=== PATIENT | male | born 1970 | race Caucasian/White ===

== ENCOUNTER 2021-08-02 08:02 | Outpatient (REF) | payer BC, SELFPAY ==
--- NOTE | ~2021-08-02 | US_ITS ---
EXAMINATION: US ABDOMEN COMPLETE CLINICAL INFORMATION: Gallstone. Liver disease. COMPARISON: Ultrasound abdomen 01/07/2019. TECHNIQUE: Real-time imaging of the abdominal viscera. FINDINGS: PANCREAS: The pancreas is homogeneous echotexture and normal in size. The pancreatic duct measures 0.12 cm. ABDOMINAL AORTA: The proximal, mid, and distal segments are normal in caliber. INFERIOR VENA CAVA: Visualized portions are normal. LIVER: The liver is normal in size. The liver contour is normal. Parenchymal echogenicity is slightly heterogeneous. There is an anechoic cyst in the left hepatic lobe measuring 2.2 x 1.0 x 1.0 cm in supine view and slightly larger in the decubitus view measuring 2.9 x 0.5 x 2.4 cm. There is no intrahepatic biliary duct dilatation seen. GALLBLADDER: There is echogenic debris seen in the decubitus view. The gallbladder is physiologically distended without evidence of stones, sludge, polyps, wall thickening or pericholecystic fluid. COMMON BILE DUCT: Normal in caliber measuring 0.3 cm in diameter. RIGHT KIDNEY: Normal. No hydronephrosis. No renal calculi or focal parenchymal lesions. The kidney measures 10.8 cm in maximum dimension. LEFT KIDNEY: Normal. No hydronephrosis. No renal calculi or focal parenchymal lesions. The kidney measures 11.2 cm in maximum dimension. SPLEEN: Normal. The spleen measures 10.2 cm in maximum dimension. FREE FLUID: None. US/US abdomen complete IMPRESSION: Slightly heterogeneous liver with a left hepatic lobe cyst. Previously, this measured 1.9 x 1.1 x 1.8 cm Slightly echogenic debris seen in the gallbladder but no echogenic gallstones or wall thickening. The rest of the abdominal ultrasound is unremarkable.
== END 2021-08-02 08:03 | disposition home or self-care (01) ==
LOC: HO.US 08:02
PROVIDERS: PCP Internal Medicine Geriatric Medicine; Visit Provider Internal Medicine Geriatric Medicine
DX: K76.89 Other specified diseases of liver (principal); K80.20 Calculus of gallbladder without cholecystitis without obstruction
CPT/HCPCS: 76700

== ENCOUNTER 2023-07-16 08:11 | Outpatient (REF) | payer BC, SELFPAY ==
[2023-07-16 11:08] LABS: MANUAL DIFF FLAG NO
[2023-07-16 11:47] LABS: Basophils Absolute Auto 0.1 X10*3/uL (0.0-0.2); Basophils Percent Auto 0.9 % (0-2); Eosinophils Absolute Auto 0.4 X10*3/uL (0.0-0.4); Eosinophils Percent Auto 6.5 % (0-4); Hematocrit 43.5 % (42.0-52.0); Hemoglobin 14.4 g/dl (14.0-18.0); Imm Gran Abs Auto 0.02 X10*3/uL (0.00-0.03); Imm Gran Pct Auto 0.3 % (0.0-0.4); Lymphocytes Absolute Auto 1.9 X10*3/uL (1.2-4.9); Lymphocytes Percent Auto 29.3 % (20-40); Mean Corpuscular HGB Conc 33.1 g/dl (31.0-36.0); Mean Corpuscular Hemoglobin 30.7 pg (27.0-33.0); Mean Corpuscular Volume 92.8 fL (80.0-98.0); Mean Platelet Volume 11.5 fL (9.4-12.4); Monocytes Absolute Auto 0.5 X10*3/uL (0.1-1.2); Monocytes Percent Auto 7.8 % (2-11); Neutrophils Absolute Auto 3.6 x10*3/uL (2.0-8.3); Neutrophils Percent Auto 55.2 % (45-73); Platelet Count 274 X10*3/uL (160-400); Red Blood Count 4.69 X10*6/uL (4.60-5.80); Red Cell Distribution Width 12.7 % (11.0-16.0); White Blood Count 6.6 X10*3/uL (4.8-10.8)
[2023-07-16 12:00] LABS: ~HepC Num1 0.04 S/CO (0.00-0.79); ~Hepatitis C Antibody Nonreactive (Nonreactive)
[2023-07-16 12:02] LABS: Alanine Aminotransferase 16 U/L (0-40); Albumin Level 4.3 g/dL (3.5-5.0); Alkaline Phosphatase 41 U/L (39-117); Anion Gap 11 (12-20); Aspartate Amino Transferase 20 U/L (5-37); Bilirubin Total 1.3 mg/dL (0.0-1.0); Blood Urea Nitrogen 13 mg/dL (9-16); Calcium 9.4 mg/dL (8.4-10.2); Carbon Dioxide 27 mmol/L (22-29); Chloride 106 mmol/L (96-108); Cholesterol 228 mg/dL (<200); Estimated Glomerular Filt Rate > 60; Glucose Random 99 mg/dL (60-115); HDL Cholesterol 50 mg/dL (>40); LDL Cholesterol Calculated 155 mg/dL (<100); Potassium 4.4 mmol/L (3.3-5.1); Prostate Specific Antigen 0.39 ng/mL (<0.05-4.0); Sodium 140 mmol/L (135-145); Total Protein 7.2 g/dL (6.5-8.0); Triglycerides 119 mg/dL (<150)
== END 2023-07-16 08:12 | disposition home or self-care (01) ==
LOC: HO.HHCL 08:11
PROVIDERS: Visit Provider Internal Medicine Geriatric Medicine
DX: Z00.00 Encounter for general adult medical examination without abnormal findings (principal); K76.89 Other specified diseases of liver; Z13.220 Encounter for screening for lipoid disorders; Z13.1 Encounter for screening for diabetes mellitus; Z11.59 Encounter for screening for other viral diseases; Z12.5 Encounter for screening for malignant neoplasm of prostate
CPT/HCPCS: 36415; 80053; 80061; 84153; 85025; 86803

== ENCOUNTER 2023-08-20 08:19 | Outpatient (REF) | payer BC, SELFPAY ==
--- NOTE | ~2023-08-20 | US_ITS ---
EXAMINATION: US ABDOMEN COMPLETE CLINICAL INFORMATION: Liver cyst. COMPARISON: Ultrasound abdomen complete 08/02/2021 and 01/07/2019. TECHNIQUE: Real-time imaging of the abdominal viscera. FINDINGS: PANCREAS: Unremarkable. ABDOMINAL AORTA: The proximal, mid, and distal segments are normal in caliber. INFERIOR VENA CAVA: Visualized portions are normal. LIVER: Liver is enlarged at 19.3 cm. Echotexture is heterogeneous. Subcapsular left lobe cyst measures 2.8 x 0.5 x 2.4 cm, previously 2.9 x 0.5 x 2.4 cm in decubitus position. There is no intrahepatic biliary duct dilatation seen. GALLBLADDER: The gallbladder is physiologically distended without evidence of stones, sludge, polyps, wall thickening or pericholecystic fluid. No tenderness elicited during study. COMMON BILE DUCT: Normal in caliber measuring 0.2 cm in diameter. RIGHT KIDNEY: Normal. No hydronephrosis. No renal calculi or focal parenchymal lesions. The kidney measures 11.6 cm in maximum dimension. LEFT KIDNEY: Normal. No hydronephrosis. No renal calculi or focal parenchymal lesions. The kidney measures 11.3 cm in maximum dimension. SPLEEN: Normal. The spleen measures 11.1 cm in maximum dimension. FREE FLUID: None. US/US abdomen complete IMPRESSION: Heterogeneous, enlarged fatty liver with no significant change left subcapsular hepatic cyst.
== END 2023-08-20 08:20 | disposition home or self-care (01) ==
LOC: HO.US 08:19
PROVIDERS: PCP Internal Medicine Geriatric Medicine; Visit Provider Internal Medicine Geriatric Medicine
DX: K76.89 Other specified diseases of liver (principal)
CPT/HCPCS: 76700

== ENCOUNTER 2024-01-30 08:12 | Outpatient (REF) | payer BC, SELFPAY ==
[2024-01-30 11:41] LABS: Alanine Aminotransferase 24 U/L (0-40); Albumin Level 4.3 g/dL (3.5-5.0); Alkaline Phosphatase 44 U/L (39-117); Anion Gap 15 (12-20); Aspartate Amino Transferase 24 U/L (5-37); Bilirubin Total 1.7 mg/dL (0.0-1.0); Blood Urea Nitrogen 12 mg/dL (9-16); Calcium 9.6 mg/dL (8.4-10.2); Carbon Dioxide 26 mmol/L (22-29); Chloride 105 mmol/L (96-108); Cholesterol 183 mg/dL (<200); Estimated Glomerular Filt Rate > 60; Glucose Random 90 mg/dL (60-115); HDL Cholesterol 57 mg/dL (>40); LDL Cholesterol Calculated 109 mg/dL (<100); Potassium 3.9 mmol/L (3.3-5.1); Sodium 142 mmol/L (135-145); Total Protein 6.8 g/dL (6.5-8.0); Triglycerides 89 mg/dL (<150)
== END 2024-01-30 08:13 | disposition home or self-care (01) ==
LOC: HO.HHCL 08:12
PROVIDERS: Visit Provider Internal Medicine Geriatric Medicine
DX: Z00.00 Encounter for general adult medical examination without abnormal findings (principal); Z13.220 Encounter for screening for lipoid disorders; R03.0 Elevated blood-pressure reading, without diagnosis of hypertension
CPT/HCPCS: 36415; 80053; 80061

== ENCOUNTER 2025-05-02 15:14 | Emergency (ER) | payer BC, SELFPAY ==
--- NOTE | ~2025-05-02 | XR_ITS ---
EXAMINATION: XR KNEE, RIGHT CLINICAL INFORMATION: Knee pain COMPARISON: None available. TECHNIQUE: Four views of the right knee. FINDINGS: There is no fracture, dislocation, or suspicious bone lesion. There is anatomical alignment. Joint spaces are preserved. There is a prominent suprapatellar joint effusion present. There is no soft tissue abnormality. XR/XR knee RT 4V IMPRESSION: 1. No fracture or dislocation. 2. Suprapatellar joint effusion. Electronically signed by: Tico Kirk MD 05/03/2025 08:19 AM EDT
--- NOTE | ~2025-05-02 | US_ITS ---
CLINICAL HISTORY: DVT. knee pain leg feel tight Venous duplex ultrasound right lower extremity Comparison: None provided Findings: The visualized deep veins are fully compressible with normal Doppler color flow and spectral tracings. No popliteal cyst. IMPRESSION: 1. Negative for right lower extremity deep vein thrombosis. This document has been electronically signed by: Petey Laird MD on 05/02/2025 18:25:02
[2025-05-02 15:24] VITALS: BP 158/84; PULSE 62; RESP 20; TEMP 37; O2SAT 97; BMI 25.1
--- NOTE | 2025-05-02 15:32 | ED.GENADULT ---
HPI - General Adult General Chief complaint: Extremity Injury, Lower Stated complaint: pain/swelling rt knee Time Seen by Provider: 05/02/25 17:42 Source: patient and family ( spouse) Mode of arrival: ambulatory Limitations: no limitations History of Present Illness ED Provider: DR. Gonzalez HPI narrative: 55-year-old male came in for evaluation of right knee swelling and slight pain started 4 days ago, no injury, no falls, no twisting of the knee, no history of STDs Patient is sexually active and monotonous relationship with his , no anticoagulation therapy, no recent strenuous activity, no recent travel, no prolonged immobilization, no history of DVT, no fever, no chills. Patient is still able to ambulate with slight limping. No known past medical history. 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 Related Data Allergies Allergy/AdvReac Type Severity Reaction Status Date / Time No Known Allergies (No Known Allergy Unverified 05/02/25 15:30 Allergies*) Review of Systems Review of Systems: all other systems are reviewed and are negative Constitutional: Reports as per HPI and Reports no additional constitutional complaints Eyes: Reports as per HPI and Reports no additional eye complaints Reports system reviewed and no additional complaints, except as documented Cardiovascular: Reports as per HPI and Reports no additional cardiovascular complaints Respiratory: Reports as per HPI and Reports no additional respiratory complaints Gastrointestinal: Reports as per HPI and Reports no additional gastrointestinal complaints Genitourinary: Reports no additional female genitourinary complaints Musculoskeletal: Reports no additional musculoskeletal complaints Skin/Breast: Reports system reviewed and no additional complaints, except as docu Psychiatric: Reports no additional psychiatric complaints Endocrine: Reports no additional endocrine complaints Hematologic/Lymphatic: Reports no additional hematologic/lymphatic complaints Allergic/Immunologic: Reports no additional allergic/immunologic complaints Reports system reviewed and no additional complaints, except as documented and Reports Abnormal speech present [facility] Social History Social History Alcohol intake: current Alcohol intake frequency: a few times a month Smoked in Last 30 Days: No Use of substances other than those prescribed or required for medical reasons: No Advance Directives: No Advance Directives Information Provided: Yes Physical Exam ED Vital Signs: Vital Signs - 24 hr 05/02/25 15:24 05/02/25 16:52 Temperature 98.6 F 98.1 F Pulse Rate 62 55 Respiratory Rate 20 18 Blood Pressure 158/84 H 134/72 Pulse Oximetry 97 98 Oxygen Delivery Method Room Air Room Air BMI result Body Mass Index 25.1 Vital signs have been reviewed and appear to be correct. Blood pressure elevated. Heart rate normal. Respiratory rate normal. Temperature normal. Oxygen saturation normal. Appearance: Alert. Oriented X3. No acute distress. Head: Normal external exam. Normocephalic. Atraumatic. No [place] signs noted. No raccoon eyes noted Eyes: PERRLA. EOMI. Conjunctiva and sclera normal. Eyelids normal. ENT: TM's Normal. Pharynx normal. Uvula midline. Moist mucous membranes. No trismus noted. No drooling noted. No muffled voice noted. Neck: Normal inspection. Neck supple. FROM. No adenopathy. Thyroid Normal. No meningeal signs. No neck mass noted. CVS: Normal heart rate and rhythm. Heart sound normal. No murmurs noted. Pulses normal throughout. Respiratory: No respiratory distress. Painless inspiration. Breath sounds normal. No wheezes/rales/rhonchi noted. Chest nontender. No accessory muscle usage noted or decreased air movement noted. Abdomen: Soft and nontender. Bowel sounds normal in all 4 quadrants. No distention noted. No organomegaly noted. No visible injury noted. Back: No CVA tenderness. Full range of motion noted. Skin: Skin warm and dry. Normal skin color. Normal skin turgor. No rashes/lesions/lacerations noted. Extremities: right knee exam: Mild effusion, full range of motion, no palpable point of tenderness, ligamentous exam is intact, neurovascularly intact. Neuro: Oriented X 3. Cranial nerve exam: II-XII are grossly intact No motor deficit. No sensory deficit. Reflexes normal. Course Course Course Narrative: RME: 55-year-old male presents to ED for swelling of knee with pain that is on range of motion. Patient states no calf pain but behind calf feels tight. Patient denies any redness or warmth. Not able to remove parents in triage. Labs ultrasound x-ray ordered. Reevaluation(s) Reevaluation #1: Right knee effusion of unclear etiology, no trauma, no source of infection, no anticoagulation and/or bleeding disorders. X-ray is unremarkable for acute pathology. Ultrasound reveals no DVT. Time: 18:07 Medical Decision Making Differential Diagnosis Differential Diagnoses: The differential diagnosis associated with the presentation includes ( ligamentous injury, intra-articular bleed, infectious effusion, DVT, fracture.) Admission/Observation Consideration of admission/observation: Escalation of care including admission/observation considered Lab Data MDM Lab Attestation statement: I reviewed the patient's lab results. 05/02/25 16:11 05/02/25 16:11 Labs: Lab Results 05/02/25 Range/Units 16:11 WBC 8.0 (4.8-10.8) X10*3/uL RBC 4.35 L (4.60-5.80) X10*6/uL Hgb 13.6 L (14.0-18.0) g/dl Hct 39.5 L (42.0-52.0) % MCV 90.8 (80.0-98.0) fL MCH 31.3 (27.0-33.0) pg MCHC 34.4 (31.0-36.0) g/dl RDW 12.9 (11.0-16.0) % Plt Count 233 (160-400) X10*3/uL MPV 10.3 (9.4-12.4) fL Immature Gran % (Auto) 0.2 (0.0-0.4) % Neut % (Auto) 59.5 (45-73) % Lymph % (Auto) 28.3 (20-40) % [place] % (Auto) 8.2 (2-11) % Eos % (Auto) 3.2 (0-4) % Baso % (Auto) 0.6 (0-2) % Lymph # (Auto) 2.3 (1.2-4.9) X10*3/uL [place] # (Auto) 0.7 (0.1-1.2) X10*3/uL Eos # (Auto) 0.3 (0.0-0.4) X10*3/uL Baso # (Auto) 0.1 (0.0-0.2) X10*3/uL Abs Immat Gran (auto) 0.02 (0.00-0.03) X10*3/uL Absolute Neuts (auto) 4.8 (2.0-8.3) x10*3/uL Absolute Nucleated RBC 0.000 (0.0-0.012) X10*3/uL Nucleated RBC % (auto) 0.0 (0.0-0.2) /100WBC PT 11.0 (10.9-12.4) SEC INR 1.0 (0.9-1.1) APTT 30.2 (26.7-34.1) SEC Sodium 143 (135-145) mmol/L Potassium 3.9 (3.3-5.1) mmol/L Chloride 105 (96-108) mmol/L Carbon Dioxide 26 (22-29) mmol/L Anion Gap 16 (12-20) BUN 20 H (9-16) mg/dL Creatinine 1.08 (0.5-1.4) mg/dL Estim Creat Clear Calc 73.8 Estimated GFR > 60 Random Glucose 91 (60-115) mg/dL Uric Acid 6.8 (3.4-7.0) mg/dL Calcium 9.2 (8.4-10.2) mg/dL Total Bilirubin 1.8 H (0.0-1.0) mg/dL AST 27 (5-37) U/L ALT 37 (0-40) U/L Alkaline Phosphatase 49 (39-117) U/L Total Protein 7.1 (6.5-8.0) g/dL Albumin 4.5 (3.5-5.0) g/dL Independent Interpretation I performed an independent interpretation of an: Plain X-Ray ( Right knee: No acute fracture, no dislocation, mild effusion.) and Ultrasound ( right lower extremity: No DVT.) Radiology Impression Discussion of test interpretation with radiology: I have reviewed the radiologist's reading. Discharge Plan Discharge Clinical Impression: Effusion of right knee Patient Disposition: Home, Self-Care Instructions: Swollen Knee Joint (ED) Additional Instructions: continue with Thomas bandage, apply ice if needed, rest, no strenuous activity. Take ibuprofen 200 mg over ( [id number] ) every 6 hours if needed for pain or swelling. follow-up with Dr. Flynn if not improving in 1 week. Referrals: Tru Flynn MD [Physician, Orthopedics] Name,MD Sharif [Primary Care Provider, Internal Medicine] Interventions: ED Discharge Assessment Last Done: 05/02/25 19:11 Discharge Date/Time: 05/02/25 19:12 Print Language: Bermudian
[2025-05-02 16:16] LABS: MANUAL DIFF FLAG NO
[2025-05-02 16:18] LABS: Hematocrit 39.5 % (42.0-52.0); Hemoglobin 13.6 g/dl (14.0-18.0); Imm Gran Abs Auto 0.02 X10*3/uL (0.00-0.03); Imm Gran Pct Auto 0.2 % (0.0-0.4); Lymphocytes Absolute Auto 2.3 X10*3/uL (1.2-4.9); Mean Corpuscular HGB Conc 34.4 g/dl (31.0-36.0); Mean Corpuscular Hemoglobin 31.3 pg (27.0-33.0); Mean Corpuscular Volume 90.8 fL (80.0-98.0); NRBC Abs Auto 0.000 X10*3/uL (0.0-0.012); NRBC Pct Auto 0.0 /100WBC (0.0-0.2); Platelet Count 233 X10*3/uL (160-400); Red Blood Count 4.35 X10*6/uL (4.60-5.80); White Blood Count 8.0 X10*3/uL (4.8-10.8)
[2025-05-02 16:24] LABS: INTERNATIONAL NORM RATIO 1.0 (0.9-1.1); Prothrombin Time 11.0 SEC (10.9-12.4)
[2025-05-02 16:26] LABS: Partial Thromboplastin Time 30.2 SEC (26.7-34.1)
[2025-05-02 16:33] LABS: Alanine Aminotransferase 37 U/L (0-40); Albumin Level 4.5 g/dL (3.5-5.0); Alkaline Phosphatase 49 U/L (39-117); Anion Gap 16 (12-20); Aspartate Amino Transferase 27 U/L (5-37); Blood Urea Nitrogen 20 mg/dL (9-16); Calcium 9.2 mg/dL (8.4-10.2); Carbon Dioxide 26 mmol/L (22-29); Chloride 105 mmol/L (96-108); Creatinine Clr Calc Pharmacy 73.8; Estimated Glomerular Filt Rate > 60; Potassium 3.9 mmol/L (3.3-5.1); Sodium 143 mmol/L (135-145); Total Protein 7.1 g/dL (6.5-8.0); Uric Acid 6.8 mg/dL (3.4-7.0)
--- OUTSIDE RECORDS SUMMARY | 2025-05-02 16:43 | XMS_ITS | Encounter Summary ---
Author Organization [employer] Address [address] [place] [address] Care Team Providers Care Bicycle Racer Name Role Phone Name, Sharif BOLAND Primary Care Provider [phone] Encounter Details Date Type Department Care Team (Late st Contact Info) Description 05/02/2025 Orders Only GENERIC EXTERNAL DATA DEPARTMENT Provider, Generic External Data Social History Tobacco Use Types Packs/Day Years Used Date Smoking Tobacco: Never Smokeless Tobacco: Never Alcohol Use Standard Drinks/Week Comments Yes 0 (1 standard drink = 0.6 oz pur e alcohol) socially Depression Answer Date Recorded Patient Health Questionnaire-9 Score 0 07/14/2023 Patient Health Questionnaire-9 Score 0 07/14/2023 Last PHQ-9: Questionnaire Data Not on file 1 09/13/2022 Housing Stability Answer Date Recorded What is your housing situation today? I have hi [place] 07/14/[address] you li ve. Do you have problems with any of the following? None of the above 07/14/2023 Food Insecurity Answer Date Recorded Within the past 12 months, y ou worried that your food would run out before you got money to buy more: Never True 07/14/2023 Within the past 12 months,th e food you bought just didn't last and you didn't have enough money to get more: Never True Transportation Answer Date Recorded In the past 12 months, has l ack of transportation kept you from medical appts, meetings, work or from getting things needed for daily living? No 07/14/2023 Utilities Answer Date Recorded In the past 12 months, has t he electric, gas, oil or water company threatened to shut off services in your home? No 07/14/2023 Depression Answer Date Recorded Patient Health Questionnaire-2 Score 0 07/14/2023 Sex and Gender Information Value Date Recorded Sex Assigned at Male 07/01/2022 10:29 AM EDT Legal Sex Male 10:29 AM EDT Gender Identity Male 07/01/2022 10:29 AM EDT Sexual Orientation Straight 07/01/2022 10 :29 AM EDT documented as of this encounter Plan of Treatment Not on file documented as of this encounter Procedures Procedure Name Priority Date/Time Associated Diagnosis Comments CBC WITH AUTO DIFFERENTIAL Routine 05/02/2025 4:11 PM EDT APTT Routine 05/02/2025 4:11 PM EDT PROTHROMBIN TIME-INR Routine 05/02/2025 4:11 PM EDT URIC ACID Routine 05/02/2025 4:11 PM EDT COMPREHENSIVE METABOLIC PANEL Routine 05/02/2025 4:11 PM EDT documented in this encounter Results * Uric acid (05/02/2025 4:11 PM EDT) Uric Acid 6.8 3.4 - 7.0 mg/dL [facility] 05/02/2025 4:11 PM EDT 05/02/2025 4:14 PM EDT us Generic External Data Provider LAB BLOOD ORDERAB LES Final Result [facility] [address] [place] [phone] * (ABNORMAL) Comprehensive Metabolic Panel (05/02/2025 4:11 PM EDT) Sodium 143 135 - 145 mmol/L [facility] Potassium 3.9 3.3 - 5.1 mmol/L [facility] Chloride 105 96 - 108 mmol/L [facility] Carbon Dioxide 26 22 - 29 mmol/L [facility] Anion Gap 16 12 - 20 [facility] Urea Nitrogen (BUN) 20(H) 9 - 16 mg/dL [facility] Creatinine, Serum 1.08 0.5 - 1.4 mg/dL [facility] Creatinine Clr Calc Pharmacy 73.8 [facility] Comment:eGFR (calculated fro m the MDRD study equation) and eCrCl(calculated from the Cockcroft-Gault equation) are based ondifferent parameters and may not yield comparable results.If eCrCl result is absurd, please check patient'sheight/weight. Estimated Glomerular Filt Rate >60 [facility] Comment:Chronic Kidney Disea se: Estimated GFR < 60 mL/min/[id number] Kidney Disease: Estimated GFR < 15 mL/min/1.73m2 Glucose 91 60 - 115 mg/dL [facility] Calcium 9.2 8.4 - 10.2 mg/dL [facility] Bilirubin, Total 1.8(H) 0.0 - 1.0 mg/dL [facility] Aspartate Amino Transferase 27 5 - 37 U/L [facility] Alanine Aminotransferase 37 0 - 40 U/L [facility] Total Protein 7.1 6.5 - 8.0 g/dL [facility] Albumin Level 4.5 3.5 - 5.0 g/dL [facility] Alkaline Phosphatase 49 39 - 117 U/L [facility] 05/02/2025 4:11 PM EDT 05/02/2025 4:14 PM EDT us Generic External Data Provider LAB BLOOD ORDERAB LES Final Result [facility] [address], [place] [phone] * Partial Thromboplastin Time, Activated (APTT) (05/02/2025 4:11 PM EDT) Partial Thromboplastin Time 30.2 26.7 - 34.1 SEC [facility] 05/02/2025 4:11 PM EDT 05/02/2025 4:14 PM EDT Generic External Data Provider LAB BLOOD ORDERAB LES Final Result Performing Organization Address [facility] Co de Phone Number [facility] [address] [place] [phone] * Prothrombin Time-INR (05/02/2025 4:11 PM EDT) [facility] Prothrombin Time 11.0 10.9 - 12.4 SEC [facility] INTERNATIONAL NORM RATIO 1.0 0.9 - 1.1 [facility] Comment:INTERNATIONAL NORMAL IZED RATIO (INR) REFERENCE RANGES Reference RangeFor patients not on anticoagulant therapy: 0.9 - 1.1INR ranges for oral anticoagulanttherapy:For prevention and treatment of venous thrombosis and pulmonary embolism: 2.0 - 3.0For acute myocardial infarction with aspirin therapy: 2.0 - 3.0For acute myocardial infarction without aspirin therapy: 3.0 - 4.0For patients with mechanical prosthetic heart valves: 2.5 - 3.5 05/02/2025 4:11 PM EDT 05/02/2025 4:14 PM EDT Generic External Data Provider LAB BLOOD ORDERAB LES Final Result Performing Organization Address [facility] de Phone Number [facility] [address] [place] [phone] * (ABNORMAL) CBC auto differential (05/02/2025 4:11 PM EDT) Pathologist [facility] White Blood Count 8.0 4.8 - 10.8 X10*3/uL [facility] Red Blood Count 4.35(L) 4.60 - 5.80 X10*6/uL [facility] Hemoglobin 13.6(L) 14.0 - 18.0 g/dl [facility] Hematocrit 39.5(L) 42.0 - 52.0 % [facility] Mean Corpuscular Volume 90.8 80.0 - 98.0 fL [facility] Mean Corpuscular Hemoglobin 31.3 27.0 - 33.0 pg [facility] Mean Corpuscular HGB Conc 34.4 31.0 - 36.0 g/dl [facility] Red Cell Distribution Width 12.9 11.0 - 16.0 % [facility] Platelet Count 233 160 - 400 X10*3/uL [facility] Mean Platelet Volume 10.3 9.4 - 12.4 fL [facility] Neutrophils Percent Auto 59.5 45 - 73 % [facility] Imm Gran Pct Auto 0.2 0.0 - 0.4 % [facility] Lymphocytes Percent Auto 28.3 20 - 40 % [facility] Monocytes Percent Auto 8.2 2 - 11 % [facility] Eosinophils Percent Auto 3.2 0 - 4 % [facility] Basophils Percent Auto 0.6 0 - 2 % [facility] NRBC Pct Auto 0.0 0.0 - 0.2 /100WBC [facility] Neutrophils Absolute Auto 4.8 2.0 - 8.3 x10*3/uL [facility] Imm Gran Abs Auto 0.02 0.00 - 0.03 X10*3/uL [facility] Lymphocytes Absolute Auto 2.3 1.2 - 4.9 X10*3/uL [facility] Monocytes Absolute Auto 0.7 0.1 - 1.2 X10*3/uL [facility] Eosinophils Absolute Auto 0.3 0.0 - 0.4 X10*3/uL [facility] Basophils Absolute Auto 0.1 0.0 - 0.2 X10*3/uL [facility] NRBC Abs Auto 0.000 0.0 - 0.012 X10*3/uL [facility] 05/02/2025 4:11 PM EDT 05/02/2025 4:14 PM EDT us Generic External Data Provider LAB BLOOD ORDERAB LES Final Result [facility] [address] [place] [phone] documented in this encounter Visit Diagnoses Not on filedocumented in this encounter Additional Health Concerns Assessment Noted Time PHQ-9 Depression Total Score: 0 07/14/20 23 2:08 PM EST documented as of this encounter Care Teams Bicycle Racer Relationship Specialty Start Date End Date Name, MD Sharif [address] [place] [address] PCP - General Family Medicine 09/01/18 documented as of this encounter
--- OUTSIDE RECORDS SUMMARY | 2025-05-02 16:43 | XMS_ITS | Clinical Summary ---
Author Organization [employer] Address [address] [place] [address] [address] [place] [address] Care Team Providers Care Fabric Normalizer Name Role Phone Name, Sharif BOLAND Primary Care Provider [phone] Allergies No known active allergies Medications No known medications Active Problems Problem Noted Date Diagnosed Date Gallstone 07/14/2023 07/14/2023 Liver cyst 07/14/2023 07/14/2023 Tubular adenoma 07/14/2023 07/14/2023 Encounters Date Type Department Care Team Description 05/02/2025 Orders Only GENERIC EXTERNAL DATA DEPARTMENT Provider, Generic External Data from Last 3 Months Immunizations Immunization Administration Dates Next Due Influenza Injectable Quadriv alant Preservative Free IIV4 MDCK 05/23/2023,05/24/2022,05/13/2020,2016 Influenza injectable quadriv alent preservative free 06/03/2021,07/05/2019,07/10/2018,2013 Influenza, IIV3, injectable 07/09/2013 Tdap 07/14/2023,07/08/2011 Family History Medical History Relation Name Comments Aortic aneurysm Father Prostate cancer Father htn Father htn Mother No Known Problems Son Relation Name Status Comments Father Mother Son Social History Tobacco Use Types Packs/Day Years Used Date Smoking Tobacco: Never Smokeless Tobacco: Never Tobacco Cessation:Counseling Given: Not Answered Alcohol Use Standard Drinks/Week Comments Yes 0 [...] Orientation Straight 07/01/2022 10 :29 AM EDT Last Filed Vital Signs Vital Sign Reading Time Taken Comments Blood Pressure 115/74 01/29/2024 9:06 AM EDT Pulse 60 01/29/2024 8:52 AM EDT Temperature 36.1 C (96.9 F) 01/29/2024 8:52 AM EDT Respiratory Rate 20 01/29/2024 8:52 AM EDT Oxygen Saturation 100% 01/29/2024 8:52 AM EDT Inhaled Oxygen Concentration - - Weight 69.7 kg (153 lb 9.6 oz) 01/29/2024 8:52 A M EDT Height 173.9 cm (5' 8.46 ) 01/29/2024 8:52 AM ED T Body Mass Index 23.04 01/29/2024 8:52 AM EDT Plan of Treatment Health Maintenance Due Date Last Done Comments CT Colonography 1969 FIT DNA/Cologuard 1969 FIT 1969 FOBT 1969 HIV Screening 1969 Sigmoidoscopy 1969 Disability Screening 1969 Alcohol/Substance Use Screening 1981 Hepatitis A Vaccines (1 of 2 - Risk 2-dose series) 1988 Hepatitis B Vaccines (1 of 3 - 19+ 3-dose series) 1988 Pneumococcal Vaccine: 50+ Years (1 of 1 - PCV) 2019 Zoster Vaccines (1 of 2) 2019 Colonoscopy 04/27/2024 04/27/2019 Colorectal Cancer Screening 04/27/2024 COVID-19 Vaccine ( season) 2024 05/23/2023, 05/24/2022, 03/22/2022, Additional history exists Depression Screening 07/14/2024 07/14/2023, 07/14/20 SDOH Screening 07/14/2024 07/14/2023 Tobacco Screening 01/28/2025 01/29/2024 Influenza Vaccine (#1) 2025 , 05/24/2022, 06/03/2021, Additional history exists Lipid Panel 01/29/2029 01/30/2024, 07/02, 06/08/2021 DTaP/Tdap/Td Vaccines (3 - Td or Tdap) 07/14/2033 07/14/2023, 07/08/2011 RSV Patients and Patients Aged 60 years or older (1 - 1-dose 75+ series) 2044 Hepatitis C Screening Completed 07/16/2023 HIB Vaccines Aged Out No longer eligi ble based on patient's age to complete this topic HPV Vaccines Aged Out No longer eligi ble based on patient's age to complete this topic IPV Vaccines Aged Out No longer eligi ble based on patient's age to complete this topic Meningococcal B Vaccine Aged Out No l onger eligible based on patient's age to complete this topic Meningococcal Vaccine Aged Out No adeline opal eligible based on patient's age to complete this topic RSV under 20 months Aged Out No longe r eligible based on patient's age to complete this topic Rotavirus Vaccines Aged Out No longer eligible based on patient's age to complete this topic Procedures Procedure Name Priority Date/Time Associated Diagnosis Comments URIC ACID Routine 05/02/2025 4:11 PM EDT COMPREHENSIVE METABOLIC PANEL Routine 05/02/2025 4:11 PM EDT APTT Routine 05/02/2025 4:11 PM EDT PROTHROMBIN TIME-INR Routine 05/02/2025 4:11 PM EDT CBC WITH AUTO DIFFERENTIAL Routine 05/02/2025 4:11 PM EDT LIPID PANEL, STANDARD Routine 01/30/2024 8:13 AM EDT Elevated blood pressure reading Healthcare maintenance Screening for cholesterol level HEPATITIS C ANTIBODY Routine 07/16/2023 8:13 AM EST Liver cyst PE (physical exam), annual Screening for cholesterol level Screening for diabetes mellitus Screening for prostate cancer Need for hepatitis C screening test HM COLONOSCOPY Routine 04/27/2019 from Last 3 Months or Most Recently Relevant to Health Maintenance Results * (ABNORMAL) CBC auto differential (05/02/2025 4:11 PM EDT) White Blood Count 8.0 4.8 - 10.8 X10*3/uL [facility] Red Blood Count 4.35(L) 4.60 - 5.80 X10*6/uL [facility] Hemoglobin 13.6(L) 14.0 - 18.0 g/dl [facility] Hematocrit 39.5(L) 42.0 - 52.0 % [facility] Mean Corpuscular Volume 90.8 80.0 - 98.0 fL [facility] Mean Corpuscular Hemoglobin 31.3 27.0 - 33.0 pg [facility] Mean Corpuscular HGB Conc 34.4 31.0 - 36.0 g/dl [facility] Red Cell Distribution Width 12.9 11.0 - 16.0 % [facility] Platelet Count 233 160 - 400 X10*3/uL [facility] Mean Platelet Volume 10.3 9.4 - 12.4 fL [facility] Neutrophils Percent Auto 59.5 45 - 73 % [facility] Imm Gran Pct Auto 0.2 0.0 - 0.4 % [facility] Lymphocytes Percent Auto 28.3 20 - 40 % [facility] Monocytes Percent Auto 8.2 2 - 11 % [facility] Eosinophils Percent Auto 3.2 0 - 4 % [facility] Basophils Percent Auto 0.6 0 - 2 % [facility] NRBC Pct Auto 0.0 0.0 - 0.2 /100WBC [facility] Neutrophils Absolute Auto 4.8 2.0 - 8.3 x10*3/uL [facility] Imm Gran Abs Auto 0.02 0.00 - 0.03 X10*3/uL [facility] Lymphocytes Absolute Auto 2.3 1.2 - 4.9 X10*3/uL [facility] Monocytes Absolute Auto 0.7 0.1 - 1.2 X10*3/uL [facility] Eosinophils Absolute Auto 0.3 0.0 - 0.4 X10*3/uL [facility] Basophils Absolute Auto 0.1 0.0 - 0.2 X10*3/uL [facility] NRBC Abs Auto 0.000 0.0 - 0.012 X10*3/uL [facility] 05/02/2025 4:11 PM EDT 05/02/2025 4:14 PM EDT us Generic External Data Provider LAB BLOOD ORDERAB LES Final Result [facility] [address] [place] [phone] * Partial Thromboplastin Time, Activated (APTT) (05/02/2025 4:11 PM EDT) Partial Thromboplastin Time 30.2 26.7 - 34.1 SEC [facility] 05/02/2025 4:11 PM EDT 05/02/2025 4:14 PM EDT us Generic External Data Provider LAB BLOOD ORDERAB LES Final Result Performing Organization Address [facility]/ZIP Co de Phone Number [facility] [address] [place] [phone] * Prothrombin Time-INR (05/02/2025 4:11 PM EDT) Prothrombin Time 11.0 10.9 - 12.4 SEC [facility] INTERNATIONAL NORM RATIO 1.0 0.9 - 1.1 [facility] Comment:INTERNATIONAL NORMAL IZED RATIO (INR) [...] ORDERAB LES Final Result Performing Organization Address [facility] Co de Phone Number [facility] [address] [place] [phone] * Uric acid (05/02/2025 4:11 PM EDT) Uric Acid 6.8 3.4 - 7.0 mg/dL [facility] 05/02/2025 4:11 PM EDT 05/02/2025 4:14 PM EDT Generic External Data Provider LAB BLOOD ORDERAB LES Final Result Performing Organization Address [facility] Co de Phone Number [facility] [address] [place] [phone] * (ABNORMAL) Comprehensive Metabolic Panel (05/02/2025 4:11 PM EDT) Sodium 143 135 - 145 mmol/L [facility] Potassium 3.9 3.3 - 5.1 mmol/L [facility] Chloride 105 96 - 108 mmol/L [facility] Carbon Dioxide 26 22 - 29 mmol/L [facility] Anion Gap 16 12 - 20 [facility] Urea Nitrogen (BUN) 20(H) 9 - 16 mg/dL [facility] Creatinine, Serum 1.08 0.5 - 1.4 mg/dL [facility] Creatinine Clr Calc Pharmacy 73.8 [facility] Comment:eGFR (calculated fro m the MDRD study equation) and eCrCl(calculated from the Cockcroft-Gault equation) are based ondifferent parameters and may not yield comparable results.If eCrCl result is absurd, please check patient'sheight/weight. Estimated Glomerular Filt Rate >60 [facility] Comment:Chronic Kidney Disea se: Estimated GFR < 60 mL/min/1.96u5Baqwvt Kidney Disease: Estimated GFR < 15 mL/min/1.73m2 Glucose 91 60 - 115 mg/dL [facility] Calcium 9.2 8.4 - 10.2 mg/dL [facility] Bilirubin, Total 1.8(H) 0.0 - 1.0 mg/dL [facility] Aspartate Amino Transferase 27 5 - 37 U/L [facility] Alanine Aminotransferase 37 0 - 40 U/L [facility] Total Protein 7.1 6.5 - 8.0 g/dL [facility] Albumin Level 4.5 3.5 - 5.0 g/dL [facility] Alkaline Phosphatase 49 39 - 117 U/L [facility] 05/02/2025 4:11 PM EDT 05/02/2025 4:14 PM EDT us Generic External Data Provider LAB BLOOD ORDERAB LES Final Result [facility] [address] [place] [phone] * (ABNORMAL) Lipid Panel, Standard (01/30/2024 8:13 AM EDT) Triglycerides 89 <150 mg/dL [facility] Comment:Desirable Triglyceri de: less than 150 mg/dLBorderline High Triglyceride 150-199 mg/dLHigh Triglyceride: 200-499 mg/dLVery High Triglyceride: greater than or equal to 5OO mg/dL Cholesterol 183 <200 mg/dL [facility] Comment:Desirable Cholestero l: less than 200 mg/dLBorderline High Cholesterol: 200-239 mg/dLHigh Cholesterol: greater than 239 mg/dL LDL Cholesterol Calculated 109(H) <100 mg/dL [facility] Comment:Desirable LDL: less than 100 mg/dLNear Optimal/Above Optimal LDL: 110- 129 mg/dLBorderline High LDL: 130-159 mg/dLHigh LDL: 160-189 mg/dLVery High LDL: greater than or equal to 190 mg/dL HDL Cholesterol 57 >40 mg/dL [facility] Comment:Desirable HDL: great er than 40 mg/dL Note: This HDL assay may give artificially low results in patients with liver disease. Blood Venous blood specimen / Unknown 01/30/2024 8:13 AM EDT 01/30/2024 11:12 AM EDT us Sharif Lara MD LAB BLOOD ORDERABLES Final Resul t Performing Organization Address [facility]/ZIP Co de Phone Number [facility] [address] [place] [phone] * Hepatitis C Ab (07/16/2023 8:13 AM EST) Hepatitis C Antibody Nonreactive Nonreactive [facility] Comment:Antibodies to HCV no t detected; does not exclude early acuteHCV infection. Blood Venous blood specimen / Unknown 07/16/2023 8:13 AM EST 07/16/2023 11:04 AM EST us Sharif Lara MD LAB BLOOD ORDERABLES Final Resul t [facility] [address] [place] [phone] * (ABNORMAL) Colonoscopy (04/27/2019) Colonoscopy Abnormal( A) Normal Comment:polyp removed Sharif Lara MD HEALTH MAINTENANCE Final Result from Last 3 Months or Most Recently Relevant to Health Maintenance Insurance [facility] HMO Care Teams Fabric Normalizer Relationship Specialty Start Date End Date Name, MD Sharif [address] [place] [phone] PCP - General Family Medicine 09/01/18
--- OUTSIDE RECORDS SUMMARY | 2025-05-02 16:43 | XMS_ITS | Encounter Summary ---
Author Organization [employer] Address [address] [place] [address] [address] [place] [address] Care Team Providers Care Animal Care Supervisor Name Role Phone Name, Sharif BOLAND Primary Care Provider [phone] Reason for Visit * Reason Onset Date Comments Appointment Request 11/11/2023 Encounter Details Date Type Department Care Team ([facility] st Contact Info) Description 11/11/[address] [facility] [address] [place] [address] [phone] Name, MD Sharif [address] [place] [phone] Appointment Request Social History Tobacco Use Types Packs/Day Years [...] AM EDT documented as of this encounter Miscellaneous Notes * Telephone Encounter - Jethro Cali - 11/11/2023 4:01 PM EDT Tc from pt stated he received a call regarding tomorrows f/u ext bond underwriter saw nothing tasked. Pt is requesting to reschedule f/u ext for a later date. documented in this encounter Plan of Treatment Not on file documented as of this encounter Visit Diagnoses Not on filedocumented in this encounter Additional Health Concerns Assessment Noted Time PHQ-9 Depression Total Score: 0 07/14/20 23 2:08 PM EST documented as of this encounter Care Teams Animal Care Supervisor Relationship Specialty Start Date End Date Name, MD Sharif [address] [place] [address] PCP - General Family Medicine 09/01/18 documented as of this encounter
[2025-05-02 16:52] VITALS: BP 134/72; PULSE 55; RESP 18; TEMP 36.7; O2SAT 98
[2025-05-02 19:11] VITALS: BP 134/72; PULSE 55; RESP 18; TEMP 36.7; O2SAT 98
== END 2025-05-02 19:12 | disposition home or self-care (01) ==
PROVIDERS: Physician Assistant; Emergency Provider Emergency Medicine; PCP Internal Medicine Geriatric Medicine
DX: M25.461 Effusion, right knee (principal); M79.604 Pain in right leg
CPT/HCPCS: 36415; 73564; 80053; 84550; 85025; 85610; 85730; 93971; 99284

== ENCOUNTER → 2025-05-02 15:31 | Outpatient (BNV) | payer BC, SELFPAY | PROVIDERS: Emergency Provider Emergency Medicine; PCP Internal Medicine Geriatric Medicine; Visit Provider Radiology Diagnostic Radiology | DX: R22.41 Localized swelling, mass and lump, right lower limb (principal) | CPT/HCPCS: 93971 ==

== ENCOUNTER 2025-07-05 12:19 | Outpatient (REF) | payer BC, SELFPAY ==
--- NOTE | ~2025-07-05 | XR_ITS ---
EXAMINATION: XR KNEE, RIGHT CLINICAL INFORMATION: M25.569 - Pain in unspecified knee COMPARISON: May 02, 2025 TECHNIQUE: AP view in standing position both knees. [place] view of the right knee. FINDINGS: Mild joint space narrowing involving mostly the medial compartment without acute cortical disruption. No lytic or blastic lesions. No subcutaneous emphysema. No metallic or radiopaque foreign body. No gross vascular calcifications. XR/XR knee RT 2V IMPRESSION: Mild medial compartment osteoarthrosis/osteoarthritis. Electronically signed by: Pablo Lara MD 07/05/2025 12:55 PM BRANDIE RAMIREZ
--- OUTSIDE RECORDS SUMMARY | 2025-07-06 14:59 | XMS_ITS | Encounter Summary ---
Author Organization [employer] Address [address] [place] [address] [address] [place] [address] Care Team Providers Care Bag Hanger Name Role Phone Name, Sharif BOLAND Primary Care Provider [phone] Reason for Visit * Reason Onset Date Comments Appointment Request 11/11/2023 Encounter Details Date Type Department Care Team ([facility] st Contact Info) Description 11/11/2023 Telephone [facility] MEDICINE [address] [place] [address] [phone] Name, MD Sharif [address] [place] [phone] Appointment Request Social History Tobacco Use Types [...] received a call regarding tomorrows f/u ext blurb writer saw nothing tasked. Pt is requesting to reschedule f/u ext for a later date. documented in this encounter Plan of Treatment Upcoming Encounters Date Type Department Care Team (Late st Contact Info) Description 08/01/2025 2:45 PM EST Office Visit [facility] MEDICINE [address] [place] [address] Name, MD Sharif [address] [place] [address] documented as of this encounter Visit Diagnoses Not on filedocumented in this encounter Additional Health Concerns Assessment Noted Time PHQ-9 Depression Total Score: 0 07/14/20 23 2:08 PM EST documented as of this encounter Care Teams Bag Hanger Relationship Specialty Start Date End Date Name, MD Sharif [address] [place] [address] PCP - General Family Medicine 09/01/18 documented as of this encounter
--- OUTSIDE RECORDS SUMMARY | 2025-07-06 14:59 | XMS_ITS | Clinical Summary ---
Author Organization [employer] Address [address] [place] [address] 7[address] [place] [address] Care Team Providers Care Design Lead Name Role Phone NameSharif MD Primary Care Provider [phone] Allergies No known active allergies Medications No known medications Active Problems Problem Noted Date Diagnosed Date Effusion of right knee 05/20/2025 Gallstone 07/14/2023 07/14/2023 Liver cyst 07/14/2023 07/14/2023 Tubular adenoma 07/14/2023 07/14/2023 Encounters Date Type Department Care Team Description 05/30/2025 1:30 PM EDT Clinical Support [facility] MEDICINE [address] [place] [address] Khadra Davis RN Elevated blood pressure reading [R03.0] 05/30/2025 Travel 05/24/2025 Telephone [facility] MEDICINE [address] [place] [address] Sharif Lara MD Referral 05/23/2025 Travel 05/19/2025 3:30 PM EDT Office Visit [address] [address] Dariela Ramirez FNP Acute pain of right knee (Primary Dx); Elevated blood pressure reading in office without diagnosis of hypertension 05/19/2025 Travel 05/12/2025 Travel 05/12/2025 Patient Outreach [facility] MED & PEDS [address] [place], [place] [phone] Sharif Lara MD Pre-visit Planning ([facility] unable to reach [facility]) 05/02/2025 Orders Only GENERIC EXTERNAL DATA DEPARTMENT [...] Description 08/01/2025 2:45 PM EST Office Visit [facility] MEDICINE [address] [place] [address] Name, MD Sharif [address] [place] [address] Health Maintenance Due Date Last Done Comments [...] PM EDT Narrative 05/02/2025 6:26 PM EDT [place] [address] Ultrasound Report Signed Patient: Jose M Vaughan MR#: [id number] : 1970 Acct:[id number] Age/Sex: 55 / M ADM Date: 05/02/25 Loc: .ED Attending Dr: Ordering Physician: Matty Anderson Date of Service: 05/02/25 Procedure(s): US venous duplex LE RT Accession Number(s): [id number] cc: Matty Anderson; Name,Sharif BOLAND CLINICAL HISTORY: [...] in OV> 05/02/251824 DD/ 24 TD/TT: 05/02/251824 Group Counselor: Procedure Note Donotuseinterpreter, Image - 05/02/[address] [address] Ultrasound Report Signed Patient: Jose M Vaughan DMR#: [id number] : 1970Acct:[id number] Age/Sex: 55 / MADM Date: 05/02/25 Loc: HO.ED Attending Dr: Ordering Physician: Matty Anderson Date of Service: 05/02/25 Procedure(s): US venous duplex LE RT Accession Number(s): [id number] cc: Matty Anderson; Name,Sharif BOLAND CLINICAL HISTORY: [...] in OV> 05/02/251824 DD/ 24 TD/TT: 05/02/251824 Group Counselor: us [facility] External Provider IMG US PROCEDURES Edited Result - Final * (ABNORMAL) CBC auto differential (05/02/2025 4:11 PM EDT) White Blood Count 8.0 4.8 - 10.8 X10*3/uL [facility] Red Blood Count 4.35(L) 4.60 - 5.80 X10*6/uL [facility] Hemoglobin 13.6(L) 14.0 - 18.0 g/dl [facility] Hematocrit 39.5(L) 42.0 - 52.0 % [facility] Mean Corpuscular Volume 90.8 80.0 - 98.0 fL [facility] Mean Corpuscular Hemoglobin 31.3 27.0 - 33.0 pg [facility] Mean Corpuscular HGB Conc 34.4 31.0 - 36.0 g/dl [facility] Red Cell Distribution Width 12.9 11.0 - 16.0 % [facility] Platelet Count 233 160 - 400 X10*3/uL [facility] Mean Platelet Volume 10.3 9.4 - 12.4 fL [facility] Neutrophils Percent Auto 59.5 45 - 73 % [facility] Imm Gran Pct Auto 0.2 0.0 - 0.4 % [facility] Lymphocytes Percent Auto 28.3 20 - 40 % [facility] Monocytes Percent Auto 8.2 2 - 11 % [facility] Eosinophils Percent Auto 3.2 0 - 4 % [facility] Basophils Percent Auto 0.6 0 - 2 % [facility] NRBC Pct Auto 0.0 0.0 - 0.2 /100WBC [facility] Neutrophils Absolute Auto 4.8 2.0 - 8.3 x10*3/uL [facility] Imm Gran Abs Auto 0.02 0.00 - 0.03 X10*3/uL [facility] Lymphocytes Absolute Auto 2.3 1.2 - 4.9 X10*3/uL [facility] Monocytes Absolute Auto 0.7 0.1 - 1.2 X10*3/uL [facility] Eosinophils Absolute Auto 0.3 0.0 - 0.4 X10*3/uL [facility] Basophils Absolute Auto 0.1 0.0 - 0.2 X10*3/uL [facility] NRBC Abs Auto 0.000 0.0 - 0.012 X10*3/uL [facility] 05/02/2025 4:11 PM EDT 05/02/2025 4:14 PM EDT us Generic External Data Provider LAB BLOOD ORDERAB LES Final Result [facility] [address] [place] [address] [phone] * Partial Thromboplastin Time, Activated (APTT) (05/02/2025 4:11 PM EDT) Partial Thromboplastin Time 30.2 26.7 - 34.1 SEC [facility] 05/02/2025 4:11 PM EDT 05/02/2025 4:14 PM EDT Generic External Data Provider LAB BLOOD ORDERAB LES Final Result Performing Organization Address [facility] Co de Phone Number [facility] [address] [place] [phone] * Prothrombin Time-INR (05/02/2025 4:11 PM EDT) Pathologist [facility] Prothrombin Time 11.0 10.9 - 12.4 SEC [facility] INTERNATIONAL NORM RATIO 1.0 0.9 - 1.1 [facility] Comment:INTERNATIONAL NORMAL IZED RATIO (INR) [...] ORDERAB LES Final Result Performing Organization Address [facility] Co de Phone Number [facility] [address] [place] [phone] * Uric acid (05/02/2025 4:11 PM EDT) Uric Acid 6.8 3.4 - 7.0 mg/dL [facility] 05/02/2025 4:11 PM EDT 05/02/2025 4:14 PM EDT us Generic External Data Provider LAB BLOOD ORDERAB LES Final Result [facility] [address] [place] [phone] [phone] * (ABNORMAL) Comprehensive Metabolic Panel (05/02/2025 4:11 PM EDT) Sodium 143 135 - 145 mmol/L [facility] Potassium 3.9 3.3 - 5.1 mmol/L [facility] Chloride 105 96 - 108 mmol/L [facility] Carbon Dioxide 26 22 - 29 mmol/L [facility] Anion Gap 16 12 - 20 [facility] Urea Nitrogen (BUN) 20(H) 9 - 16 mg/dL [facility] Creatinine, Serum 1.08 0.5 - 1.4 mg/dL [facility] Creatinine Clr Calc Pharmacy 73.8 [facility] Comment:eGFR (calculated fro m the MDRD study equation) and eCrCl(calculated from the Cockcroft-Gault equation) are based ondifferent parameters and may not yield comparable results.If eCrCl result is absurd, please check patient'sheight/weight. Estimated Glomerular Filt Rate >60 [facility] Comment:Chronic Kidney Disea se: Estimated GFR < 60 mL/min/[id number] Kidney Disease: Estimated GFR < 15 mL/min/1.73m2 Glucose 91 60 - 115 mg/dL [facility] Calcium 9.2 8.4 - 10.2 mg/dL [facility] Bilirubin, Total 1.8(H) 0.0 - 1.0 mg/dL [facility] Aspartate Amino Transferase 27 5 - 37 U/L [facility] Alanine Aminotransferase 37 0 - 40 U/L [facility] Total Protein 7.1 6.5 - 8.0 g/dL [facility] Albumin Level 4.5 3.5 - 5.0 g/dL [facility] Alkaline Phosphatase 49 39 - 117 U/L [facility] 05/02/2025 4:11 PM EDT 05/02/2025 4:14 PM EDT us Generic External Data Provider LAB BLOOD ORDERAB LES Final Result [facility] [address] [place] [phone] * XR Knee 4+ Views Right (05/02/2025 3:03 PM EDT) Anatomical Region Laterality Modality Lower Extremities, Knee Right Radiogra phic Imaging 05/02/2025 3:03 PM EDT Narrative 05/03/2025 8:22 AM EDT [address] [address] XRay Report Signed Patient: Jose M Vaughan MR#: [id number] 998 : 1970 Acct:[id number] Age/Sex: 55 / M ADM Date: 05/02/25 Loc: HO.ED Attending Dr: Ordering Physician: Matty Anderson Date of Service: 05/02/25 Procedure(s): XR knee RT 4V Accession Number(s): [id number] cc: Matty Anderson; Name,Sharif BOLAND Reason for [...] 05/03/25 0819 DD/ 1503 TD/TT: 05/02/25 1603 Group Counselor: Procedure Note Donvininterpreter, Image - 05/03/[address] [address] XRay Report Signed Patient: Jose M Vaughan DMR#: [id number] 998 : 1970Acct:[id number] Age/Sex: 55 / MADM Date: 05/02/25 Loc: HO.ED Attending Dr: Ordering Physician: Matty Anderson Date of Service: 05/02/25 Procedure(s): XR knee RT 4V Accession Number(s): [id number] cc: Matty Anderson; Name,Sharif OBLAND Reason for Exam: Knee pain EXAMINATION: XR [...] 05/03/25 0819 DD/ 1503 TD/TT: 05/02/25 1603 Group Counselor: [facility] External Provider IMG XR PROCEDURES Edited Result - Final * (ABNORMAL) Lipid Panel, Standard (01/30/2024 8:13 AM EDT) Triglycerides 89 <150 mg/dL [facility] Comment:Desirable Triglyceri de: less than 150 mg/dLBorderline High Triglyceride 150-199 mg/dLHigh Triglyceride: 200-499 mg/dLVery High Triglyceride: greater than or equal to 5OO mg/dL Cholesterol 183 <200 mg/dL [facility] Comment:Desirable Cholestero l: less than 200 mg/dLBorderline High Cholesterol: 200-239 mg/dLHigh Cholesterol: greater than 239 mg/dL LDL Cholesterol Calculated 109(H) <100 mg/dL [facility] Comment:Desirable LDL: less than 100 mg/dLNear Optimal/Above Optimal LDL: 110- 129 mg/dLBorderline High LDL: 130-159 mg/dLHigh LDL: 160-189 mg/dLVery High LDL: greater than or equal to 190 mg/dL HDL Cholesterol 57 >40 mg/dL [facility] Comment:Desirable HDL: great er than 40 mg/dL Note: This HDL assay may give artificially low results in patients with liver disease. Blood Venous blood specimen / Unknown 01/30/2024 8:13 AM EDT 01/30/2024 11:12 AM EDT us Sharif Lara MD LAB BLOOD ORDERABLES Final Resul t Performing Organization Address [facility] Co de Phone Number [facility] [address] [place] [phone] * Hepatitis C Ab (07/16/2023 8:13 AM EST) Hepatitis C Antibody Nonreactive Nonreactive [facility] Comment:Antibodies to HCV no t detected; does not exclude early acuteHCV infection. Blood Venous blood specimen / Unknown 07/16/2023 8:13 AM EST 07/16/2023 11:04 AM EST us Sharif Lara MD LAB BLOOD ORDERABLES Final Resul t Performing Organization Address [facility] Co de Phone Number [facility] [address] [place] [phone] * (ABNORMAL) Hm Colonoscopy (04/27/2019) Colonoscopy Abnormal( A) Normal Comment:polyp removed us Sharif Lara MD HEALTH MAINTENANCE Final Result from Last 3 Months or Most Recently Relevant to Health Maintenance Insurance [facility] HMO Care Teams Design Lead Relationship Specialty Start Date End Date Name, MD Sharif [address] [place] [phone] PCP - General Family Medicine 09/01/18
== END 2025-07-05 12:20 | disposition home or self-care (01) ==
LOC: HO.HOSX 12:19
PROVIDERS: Visit Provider Physician Assistant
DX: M25.461 Effusion, right knee (principal)
CPT/HCPCS: 73560

== ENCOUNTER 2025-07-05 12:42 | Outpatient (AMB) | payer BC, SELFPAY ==
--- NOTE | 2025-07-05 13:07 | MHC.OFFVIS ---
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 patient reports ongoing pain for about 2 months. He states that his pain is on the lateral aspect of the knee. Patient notices that his pain is worse when he is walking and standing. He was given a ROBLES bandage for compression and advised to use ice and take NSAIDs. Patient mentions that his knee would lock up on him when he was walking. He states that his pain subsided with his swelling due to elevation and compression. Today he states that he is doing better but he feels some achiness. Allergies No Known Allergies (No Known Allergies*) Allergy (Unverified 05/02/25 15:30) HPI HPI ER f/u JUNIOR COPYWRITER- Rt knee effusion: Details: Mr. Vaughan is a 55-year-old male who presents to the office today for follow up after a right knee effusion that occurred around 04/28/2025. He was seen in the emergency department 4 days later. He denies any injury or trauma. He reports that he was doing a lot of walking in the days leading up to the effusion. Since then, the effusion has resolved on its own. He does occasionally have some knee pain along the lateral joint line with popping. This too has resolved on its own. He is not experiencing any symptoms today. 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 No ecchymosis, erythema, or joint effusion. No tenderness to palpation along the medial or lateral joint lines. Full knee extension and flexion. Negative Luisana's. Negative anterior drawer. NVI. Psych Appearance: grossly normal Mental Status: mental status grossly normal Attitude: cooperative Assessment & Plan Assessment & Plan (1) Effusion of right knee: Code(s): M25.461 - Effusion, right knee Category: Medical Plan Mr. Vaughan is a 55-year-old male who presents to the office today for follow up after a right knee effusion that occurred around 04/28/2025. He was seen in the emergency department 4 days later. He denies any injury or trauma. He reports that he was doing a lot of walking in the days leading up to the effusion. Since then, the effusion has resolved on its own. He does occasionally have some knee pain along the lateral joint line with popping. This too has resolved on its own. He is not experiencing any symptoms today. While in the office today, the patient is not experiencing any symptoms. We did discuss the potential of a meniscal tear with the symptoms that he was describing such a sharp pain along the lateral joint lines. However the patient is not experiencing any symptoms at this time. Should the symptoms return in the future I did discuss with the patient the possibility of cortisone injection, aspiration and further imaging. Patient understands and is in agreement with this plan. He will follow up with Orthopedics p.r.n., sooner if needed. X-rays of the right knee which were obtained while in the office today and were reviewed by me, Lilia Morris PA-C, revealed no acute fracture or dislocation. Orders: Orders XR knee RT 2V 07/05/25 M25.569 - Pain in unspecified knee Coding Level of Care Code New Pt Level 3 (04121) Diagnoses Effusion of right knee M25.461
--- OUTSIDE RECORDS SUMMARY | 2025-07-05 15:24 | XMS_ITS | Clinical Summary ---
Author Organization [employer] Address [address] [place] [address] 7t [place] [address] Care Team Providers Care Track Welder Name Role Phone NameSharif MD Primary Care Provider [phone] Allergies No known active allergies Medications No known medications Active Problems Problem Noted Date Diagnosed Date Effusion of right knee 05/20/2025 Gallstone 07/14/2023 07/14/2023 Liver cyst 07/14/2023 07/14/2023 Tubular adenoma 07/14/2023 07/14/2023 Encounters Date Type Department Care Team Description 05/30/2025 1:30 PM EDT Clinical Support [facility] MEDICINE [address] [place] [phone] Khadra Davis RN Elevated blood pressure reading [R03.0] 05/30/2025 Travel 05/24/2025 Telephone [facility] MEDICINE [address] [place] [phone] Sharif Lara MD Referral 05/23/2025 Travel 05/19/2025 3:30 PM EDT Office Visit [address] [address] Dariela Ramirez FNP Acute pain of right knee (Primary Dx); Elevated blood pressure reading in office without diagnosis of hypertension 05/19/2025 Travel 05/12/2025 Travel 05/12/2025 Patient Outreach [facility] [address] [place], [place] [phone] Sharif Lara MD Pre-visit Planning ([facility] unable to reach [facility]) 05/02/2025 Orders Only GENERIC EXTERNAL DATA DEPARTMENT [...] Date Recorded Patient Health Questionnaire-9 Score 0 05/19/2025 Patient Health Questionnaire-9 Score 0 05/19/2025 Last PHQ-9: Questionnaire Data Not on file 0 05/19/2025 Housing Stability Answer Date Recorded What is your housing situation today? I have hi [place] 05/19/[address] you li ve. Do you have problems with any of the following? None of the above 05/19/2025 Food Insecurity Answer Date Recorded Within the past 12 months, y ou worried that your food would run out before you got money to buy more: Never True 05/19/2025 Within the past 12 months,th e food you bought just didn't last and you didn't have enough money to get more: Never True Transportation Answer Date Recorded In the past 12 months, has l ack of transportation kept you from medical appts, meetings, work or from getting things needed for daily living? No 05/19/2025 Utilities Answer Date Recorded In the past 12 months, has t he electric, gas, oil or water company threatened to shut off services in your home? No 05/19/2025 Depression Answer Date Recorded Patient Health Questionnaire-2 Score 0 05/19/2025 Internet Access Answer Date Recorded Internet Access Q1 No 05/19/2025 Internet Access Q2 I do not want or need it 05/02 Sex and Gender Information Value Date Recorded Sex Assigned at Male 07/01/2022 10:29 AM EDT Legal Sex Male 10:29 AM EDT Gender Identity Male 07/01/2022 10:29 AM EDT Sexual Orientation Straight 07/01/2022 10 :29 AM EDT Last Filed Vital Signs Vital Sign Reading Time Taken Comments Blood Pressure 136/80 05/30/2025 1:31 PM EDT Pulse 58 05/30/2025 1:30 PM EDT Temperature 37.3 C (99.1 F) 05/30/2025 1:30 PM EDT Respiratory Rate 18 05/30/2025 1:30 PM EDT Oxygen Saturation 96% 05/30/2025 1:30 PM EDT Inhaled Oxygen Concentration - - Weight 70.4 kg (155 lb 3.2 oz) 05/30/2025 1:30 P M EDT Height 172.7 cm (5' 8 ) 05/30/2025 1:30 PM EDT Body Mass Index 23.6 05/30/2025 1:30 PM EDT Plan of Treatment Upcoming Encounters Date Type Department Care Team (Late st Contact Info) Description 08/01/2025 2:45 PM EST Office Visit [facility] MEDICINE [address] [place] [phone] Name, MD Sharif [address] [place] [address] Health Maintenance Due Date Last Done Comments CT Colonography 1969 FIT DNA/Cologuard 1970 FIT 1970 FOBT 1970 HIV Screening 1970 Sigmoidoscopy 1969 Hepatitis A Vaccines (1 of 2 - Risk 2-dose series) 1988 Hepatitis B Vaccines (1 of 3 - 19+ 3-dose series) 1988 Pneumococcal Vaccine: 50+ Years (1 of 1 - PCV) 2019 Zoster Vaccines (1 of 2) 2019 Colonoscopy 04/27/2024 04/27/2019 Colorectal Cancer Screening 04/27/2024 Disability Screening 05/12/2026 05/12/2025 Alcohol/Substance Use Screening 05/19/2026 05/19/2025 Depression Screening 05/19/2026 05/19/2025, 05/19/20 25 SDOH Screening 05/19/2026 05/19/2025 Tobacco Screening 05/19/2026 05/19/2025 Lipid Panel 01/29/2029 01/30/2024, 07/02, 06/08/2021 DTaP/Tdap/Td Vaccines (3 - Td or Tdap) 07/14/2033 07/14/2023, 07/08/2011 RSV Patients and Patients Aged 60 years or older (1 - 1-dose 75+ series) 2044 Hepatitis C Screening Completed 07/16/2023 COVID-19 Vaccine Completed 05/14/2024, , 05/24/2022, Additional history exists Influenza Vaccine Completed 05/20/2025, , 05/23/2023, Additional history exists HIB Vaccines Aged Out No longer eligi [...] Procedure Name Priority Date/Time Associated Diagnosis Comments US VENOUS DUPLEX LE RT Routine 5 6:25 PM EDT URIC ACID Routine 05/02/2025 4:11 PM EDT COMPREHENSIVE METABOLIC PANEL Routine 05/02/2025 4:11 PM EDT APTT Routine 05/02/2025 4:11 PM EDT PROTHROMBIN TIME-INR Routine 05/02/2025 4:11 PM EDT CBC WITH AUTO DIFFERENTIAL Routine 05/02/2025 4:11 PM EDT XR KNEE 4+ VIEWS RIGHT Routine 3:03 PM EDT LIPID PANEL, STANDARD Routine 01/30/2024 [...] Recently Relevant to Health Maintenance Results * US VENOUS DUPLEX LE RT (05/02/2025 6:25 PM EDT) Anatomical Region Laterality Modality Abdomen Ultrasound 05/02/2025 6:25 PM EDT Narrative 05/02/2025 6:26 PM EDT [place] [address] Ultrasound Report Signed Patient: Jose M Vaughan MR#: [id number] 998 : 1970 Acct:[id number] Age/Sex: 55 / M ADM Date: 05/02/25 Loc: .ED Attending Dr: Ordering Physician: Matty Anderson Date of Service: 05/02/25 Procedure(s): US venous duplex LE RT Accession Number(s): [id number] cc: Matty Anderson; Name,Sharif BOLAND CLINICAL HISTORY: DVT. knee pain leg feel tight Venous duplex ultrasound right lower extremity Comparison: None provided Findings: The visualized deep veins are fully compressible with normal Doppler color flow and spectral tracings. No popliteal cyst. IMPRESSION: 1. Negative for right lower extremity deep vein thrombosis. This document has been electronically signed by: Petey Laird MD on 05/02/2025 18:25:02 Dictated By: Petey Laird MD Signed By: <Electronically signed by Petey Laird MD in OV> 05/02/251824 DD/ 24 TD/TT: 05/02/251824 Installation Superintendent: Procedure Note Donotuseinterpreter, Image - 05/02/[address] [address] Ultrasound Report Signed Patient: Jose M Vaughan DMR#: [id number] : 1970Acct:[id number] Age/Sex: 55 / MADM Date: 05/02/25 Loc: HO.ED Attending Dr: Ordering Physician: Matty Anderson Date of Service: 05/02/25 Procedure(s): US venous duplex LE RT Accession Number(s): [id number] cc: Matty Anderson; Name,Sharif BOLAND CLINICAL HISTORY: DVT. knee pain leg feel tight Venous duplex ultrasound right lower extremity Comparison: None provided Findings: The visualized deep veins are fully compressible with normal Doppler color flow and spectral tracings. No popliteal cyst. IMPRESSION: 1. Negative for right lower extremity deep vein thrombosis. This document has been electronically signed by: Petey Laird MD on 05/02/2025 18:25:02 Dictated By: Petey Laird MD Signed By: <Electronically signed by Petey Laird MD in OV> 05/02/251824 DD/ 24 TD/TT: 05/02/251824 Installation Superintendent: us [facility] External Provider IMG US PROCEDURES Edited Result - Final * (ABNORMAL) CBC auto differential (05/02/2025 4:11 PM EDT) White Blood Count 8.0 4.8 - 10.8 X10*3/uL [facility] Red Blood Count 4.35(L) 4.60 - 5.80 X10*6/uL [facility] Hemoglobin 13.6(L) 14.0 - 18.0 g/dl [facility] Hematocrit 39.5(L) 42.0 - 52.0 % [facility] Mean Corpuscular Volume 90.8 80.0 - 98.0 fL [facility] Mean Corpuscular Hemoglobin 31.3 27.0 - 33.0 pg [facility] Mean Corpuscular HGB Conc 34.4 31.0 - 36.0 g/dl [facility] Red Cell Distribution Width 12.9 11.0 - 16.0 % [facility] Platelet Count 233 160 - 400 X10*3/uL [facility] Mean Platelet Volume 10.3 9.4 - 12.4 fL [facility] Neutrophils Percent Auto 59.5 45 - 73 % [facility] Imm Gran Pct Auto 0.2 0.0 - 0.4 % [facility] Lymphocytes Percent Auto 28.3 20 - 40 % [facility] Monocytes Percent Auto 8.2 2 - 11 % [facility] Eosinophils Percent Auto 3.2 0 - 4 % [facility] Basophils Percent Auto 0.6 0 - 2 % [facility] NRBC Pct Auto 0.0 0.0 - 0.2 /100WBC [facility] Neutrophils Absolute Auto 4.8 2.0 - 8.3 x10*3/uL [facility] Imm Gran Abs Auto 0.02 0.00 - 0.03 X10*3/uL [facility] Lymphocytes Absolute Auto 2.3 1.2 - 4.9 X10*3/uL [facility] Monocytes Absolute Auto 0.7 0.1 - 1.2 X10*3/uL [facility] Eosinophils Absolute Auto 0.3 0.0 - 0.4 X10*3/uL [facility] Basophils Absolute Auto 0.1 0.0 - 0.2 X10*3/uL [facility] NRBC Abs Auto 0.000 0.0 - 0.012 X10*3/uL [facility] 05/02/2025 4:11 PM EDT 05/02/2025 4:14 PM EDT us Generic External Data Provider LAB BLOOD ORDERAB LES Final Result [facility] [address] [place] [address] [phone] * Partial Thromboplastin Time, Activated (APTT) (05/02/2025 4:11 PM EDT) Partial Thromboplastin Time 30.2 26.7 - 34.1 SEC [facility] 05/02/2025 4:11 PM EDT 05/02/2025 4:14 PM EDT Generic External Data Provider LAB BLOOD ORDERAB LES Final Result Performing Organization Address [facility] Co de Phone Number [facility] [address] [place] [phone] * Prothrombin Time-INR (05/02/2025 4:11 PM EDT) Pathologist [facility] Prothrombin Time 11.0 10.9 - 12.4 SEC [facility] INTERNATIONAL NORM RATIO 1.0 0.9 - 1.1 [facility] Comment:INTERNATIONAL NORMAL IZED RATIO (INR) [...] Final Result Performing Organization Address [facility] Co de Phone Number [facility] [address] [place] [phone] * Uric acid (05/02/2025 4:11 PM EDT) Uric Acid 6.8 3.4 - 7.0 mg/dL [facility] 05/02/2025 4:11 PM EDT 05/02/2025 4:14 PM EDT us Generic External Data Provider LAB BLOOD ORDERAB LES Final Result [facility] [address] [place] [phone] * (ABNORMAL) Comprehensive Metabolic Panel (05/02/2025 4:11 PM EDT) Sodium 143 135 - 145 mmol/L [facility] Potassium 3.9 3.3 - 5.1 mmol/L [facility] Chloride 105 96 - 108 mmol/L [facility] Carbon Dioxide 26 22 - 29 mmol/L [facility] Anion Gap 16 12 - 20 [facility] Urea Nitrogen (BUN) 20(H) 9 - 16 mg/dL [facility] Creatinine, Serum 1.08 0.5 - 1.4 mg/dL [facility] Creatinine Clr Calc Pharmacy 73.8 [facility] Comment:eGFR (calculated fro m the MDRD study equation) and eCrCl(calculated from the Cockcroft-Gault equation) are based ondifferent parameters and may not yield comparable results.If eCrCl result is absurd, please check patient'sheight/weight. Estimated Glomerular Filt Rate >60 [facility] Comment:Chronic Kidney Disea se: Estimated GFR < 60 mL/min/1.90k2Slrddp Kidney Disease: Estimated GFR < 15 mL/min/1.73m2 Glucose 91 60 - 115 mg/dL [facility] Calcium 9.2 8.4 - 10.2 mg/dL [facility] Bilirubin, Total 1.8(H) 0.0 - 1.0 mg/dL [facility] Aspartate Amino Transferase 27 5 - 37 U/L [facility] Alanine Aminotransferase 37 0 - 40 U/L [facility] Total Protein 7.1 6.5 - 8.0 g/dL [facility] Albumin Level 4.5 3.5 - 5.0 g/dL [facility] Alkaline Phosphatase 49 39 - 117 U/L [facility] 05/02/2025 4:11 PM EDT 05/02/2025 4:14 PM EDT us Generic External Data Provider LAB BLOOD ORDERAB LES Final Result [facility] [address] [place] [phone] * XR Knee 4+ Views Right (05/02/2025 3:03 PM EDT) Anatomical Region Laterality Modality Lower Extremities, Knee Right Radiogra phic Imaging 05/02/2025 3:03 PM EDT Narrative 05/03/2025 8:22 AM EDT [address] [address] XRay Report Signed Patient: Jose M Vaughan MR#: [id number] 998 : 1970 Acct:[id number] Age/Sex: 55 / M ADM Date: 05/02/25 Loc: HO.ED Attending Dr: Ordering Physician: aMtty Anderson Date of Service: 05/02/25 Procedure(s): XR knee RT 4V Accession Number(s): [id number] cc: Matty Anderson; Name,Sharif BOLAND Reason for Exam: Knee pain EXAMINATION: XR KNEE, RIGHT CLINICAL INFORMATION: Knee pain COMPARISON: None available. TECHNIQUE: Four views of the right knee. FINDINGS: There is no fracture, dislocation, or suspicious bone lesion. There is anatomical alignment. Joint spaces are preserved. There is a prominent suprapatellar joint effusion present. There is no soft tissue abnormality. XR/XR knee RT 4V IMPRESSION: 1. No fracture or dislocation. 2. Suprapatellar joint effusion. Electronically signed by: Tico Kirk MD 05/03/2025 08:19 AM EDT Dictated By: Tico Kirk MD Signed By: <Electronically signed by Tico Kirk MD in OV> 05/03/25 0819 DD/ 1503 TD/TT: 05/02/25 1603 Installation Superintendent: Procedure Note Donvininterpreter, Image - 05/03/[address] [address] XRay Report Signed Patient: Jose M Vaughan DMR#: [id number] : 1970Acct:[id number] Age/Sex: 55 / MADM Date: 05/02/25 Loc: HO.ED Attending Dr: Ordering Physician: Matty Anderson Date of Service: 05/02/25 Procedure(s): XR knee RT 4V Accession Number(s): [id number] cc: Matty Anderson; Name,Sharif BOLAND Reason for Exam: Knee pain EXAMINATION: XR KNEE, RIGHT CLINICAL INFORMATION: Knee pain COMPARISON: None available. TECHNIQUE: Four views of the right knee. FINDINGS: There is no fracture, dislocation, or suspicious bone lesion. There is anatomical alignment. Joint spaces are preserved. There is a prominent suprapatellar joint effusion present. There is no soft tissue abnormality. XR/XR knee RT 4V IMPRESSION: 1. No fracture or dislocation. 2. Suprapatellar joint effusion. Electronically signed by: Tico Kirk MD 05/03/2025 08:19 AM EDT Dictated By: Tico Kirk MD Signed By: <Electronically signed by Tico Kirk MD in OV> 05/03/25 0819 DD/ 1503 TD/TT: 05/02/25 1603 Installation Superintendent: [facility] External Provider IMG XR PROCEDURES Edited Result - Final * (ABNORMAL) Lipid Panel, Standard (01/30/2024 8:13 AM EDT) Triglycerides 89 <150 mg/dL [facility] Comment:Desirable Triglyceri de: less than 150 mg/dLBorderline High Triglyceride 150-199 mg/dLHigh Triglyceride: 200-499 mg/dLVery High Triglyceride: greater than or equal to 5OO mg/dL Cholesterol 183 <200 mg/dL [facility] Comment:Desirable Cholestero l: less than 200 mg/dLBorderline High Cholesterol: 200-239 mg/dLHigh Cholesterol: greater than 239 mg/dL LDL Cholesterol Calculated 109(H) <100 mg/dL [facility] Comment:Desirable LDL: less than 100 mg/dLNear Optimal/Above Optimal LDL: 110- 129 mg/dLBorderline High LDL: 130-159 mg/dLHigh LDL: 160-189 mg/dLVery High LDL: greater than or equal to 190 mg/dL HDL Cholesterol 57 >40 mg/dL [facility] Comment:Desirable HDL: great er than 40 mg/dL Note: This HDL assay may give artificially low results in patients with liver disease. Blood Venous blood specimen / Unknown 01/30/2024 8:13 AM EDT 01/30/2024 11:12 AM EDT us Sharif Lara MD LAB BLOOD ORDERABLES Final Resul t Performing Organization Address [facility] Co de Phone Number [facility] [address] [place] [phone] * Hepatitis C Ab (07/16/2023 8:13 AM EST) Hepatitis C Antibody Nonreactive Nonreactive [facility] Comment:Antibodies to HCV no t detected; does not exclude early acuteHCV infection. Blood Venous blood specimen / Unknown 07/16/2023 8:13 AM EST 07/16/2023 11:04 AM EST us Sharif Lara MD LAB BLOOD ORDERABLES Final Resul t Performing Organization Address [facility] Co de Phone Number [facility] [address] [place] [phone] * (ABNORMAL) Hm Colonoscopy (04/27/2019) Colonoscopy Abnormal( A) Normal Comment:polyp removed us Sharif Lara MD HEALTH MAINTENANCE Final Result from Last 3 Months or Most Recently Relevant to Health Maintenance Insurance [facility] HMO Care Teams Track Welder Relationship Specialty Start Date End Date Name, MD Shairf [address] [place] [phone] PCP - General Family Medicine 09/01/18
--- OUTSIDE RECORDS SUMMARY | 2025-07-05 15:24 | XMS_ITS | Encounter Summary ---
Author Organization [employer] Address [address] [place] [address] [address] [place] [address] Care Team Providers Care Surg Nurse Name Role Phone Name, Sharif BOLAND Primary Care Provider [phone] Reason for Visit * Reason Onset Date Comments Appointment Request 11/11/2023 Encounter Details Date Type Department Care Team ([facility] st Contact Info) Description 11/11/2023 Telephone [facility] MEDICINE [address] [place] [address] [phone] Name, MD Sharif [address] [place] [phone] Appointment Request Social History Tobacco Use Types [...] received a call regarding tomorrows f/u ext parts data writer saw nothing tasked. Pt is requesting to reschedule f/u ext for a later date. documented in this encounter Plan of Treatment Upcoming Encounters Date Type Department Care Team (Late st Contact Info) Description 08/01/2025 2:45 PM EST Office Visit [facility] MEDICINE [address] [place] [address] Name, MD Sharif [address] [place] [address] documented as of this encounter Visit Diagnoses Not on filedocumented in this encounter Additional Health Concerns Assessment Noted Time PHQ-9 Depression Total Score: 0 07/14/20 23 2:08 PM EST documented as of this encounter Care Teams Surg Nurse Relationship Specialty Start Date End Date Name, MD Sharif [address] [place] [address] PCP - General Family Medicine 09/01/18 documented as of this encounter
== END 2025-07-05 14:48 | disposition home or self-care (01) ==
LOC: HO.HOS 12:43
PROVIDERS: PCP Internal Medicine Geriatric Medicine; Visit Provider Physician Assistant
DX: M25.461 Effusion, right knee (principal)
CPT/HCPCS: 99203

== ENCOUNTER → 2025-07-05 12:44 | Outpatient (BNV) | payer BC, SELFPAY | PROVIDERS: Visit Provider Radiology Diagnostic Radiology | DX: M17.11 Unilateral primary osteoarthritis, right knee (principal) | CPT/HCPCS: 73560 ==

== ENCOUNTER 2025-08-04 08:18 | Outpatient (REF) | payer BC, SELFPAY ==
--- OUTSIDE RECORDS SUMMARY | 2025-08-01 14:45 | XMS_ITS | Encounter Summary ---
Author Organization [employer] Address [address] [place] [address] [address]t [place] [address] Care Team Providers Care Lunchroom Aide Name Role Phone Sharif Nelson MD Primary Care Provider [phone] Reason for Referral * Consultation (Routine) - Pending Review Specialty Diagnoses / Procedures Referred By Saleem barrera Referred To Contact Gastroenterology Diagnoses Tubular adenoma Sharif Nelson MD [address] [place] [phone] Phone: tel: fax: [facility] Gastroenterology [address] [place] [address] Drive, [address] [place] [address] Phone: tel: fax: Referral ID Status Reason Start Date Expiration Date Visits Requested Visits Authorized [id number] Pending Review Specialty Services Required 08/01/2025 08/01/2026 1 1 * Imaging (Routine) - Authorized Specialty Diagnoses / Procedures Referred By Saleem barrera Referred To Contact Radiology Diagnoses Fatty liver Procedures US Abdomen Complete Sharif Nelson MD [address] [place] [address] Phone: tel: fax: [facility] [address] [place] [address] Phone: tel: fax: Referral ID Status Reason Start Date Expiration Date V isits Requested Visits Authorized [id number] Authorized 08/01/2025 08/01/2026 1 1 Reason for Visit * Reason Comments Annual Exam Encounter Details Date Type Department Care Team (Late st Contact Info) Description 08/01/2025 2:45 PM EST Office Visit [facility] MEDICINE [address] [place] [address] Name, MD Sharif [address] [place] [address] Physical exam (Primary Dx); Tubular adenoma; Fatty liver; Screening for prostate cancer; Screening for cholesterol level; Encounter for immunization Social History Tobacco Use Types Packs/Day Years [...] AM EDT documented as of this encounter Last Filed Vital Signs Vital Sign Reading Time Taken Comments Blood Pressure 122/88 08/01/2025 2:43 PM EST Pulse 57 08/01/2025 2:43 PM EST Temperature 36.3 C (97.4 F) 08/01/2025 2:43 PM EST Respiratory Rate 14 08/01/2025 2:43 PM EST Oxygen Saturation 98% 08/01/2025 2:43 PM EST Inhaled Oxygen Concentration - - Weight 70.7 kg (155 lb 12.8 oz) 08/01/2025 2:43 PM EST Height 172.7 cm (5' 8 ) 08/01/2025 2:43 PM EST Body Mass Index 23.69 08/01/2025 2:43 PM EST documented in this encounter Progress Notes * Sharif Nelson, - 08/01/2025 2:45 PM EST Subjective Patient ID: Benjamin Vaughan is a 55 y.o. male who presents for Annual Exam. Patient comes for a physical exam. He is asymptomatic. The patient has been exercising very often. He is lifting weights The patient has improved his diet considerably since the last time we met He has lost weight and he is congratulated. He is to have fatty liver. I have recommended to recheck his blood work and ultrasound of the liver. On review of health maintenance schedule he is due for repeat colonoscopy. He had a tubular adenoma removed in 2019. I have recommended to recheck his PSA. He agreed with COVID and PCV 20 vaccines today. He is not sure if he will receive hepatitis B vaccine in the future. Review of Systems Constitutional: Negative for chills, fatigue and fever. HENT: Negative for sore throat. Respiratory: Negative for cough, chest tightness and shortness of breath. Cardiovascular: Negative for chest pain, palpitations and leg swelling. Gastrointestinal: Negative for abdominal pain and blood in stool. Objective Vitals: 08/01/25 1443 BP: 122/88 BP Location: Left arm Patient Position: Sitting BP Cuff Size: Adult Pulse: 57 Resp: 14 Temp: 97.4 ??F (36.3 ??C) TempSrc: Temporal SpO2: 98% Weight: 155 lb 12.8 oz (70.7 kg) Height: 5' 8 (1.727 m) Physical Exam Constitutional: Appearance: Normal appearance. Cardiovascular: Rate and Rhythm: Normal rate and regular rhythm. Heart sounds: No murmur heard. Pulmonary: Effort: Pulmonary effort is normal. No respiratory distress. Breath sounds: No wheezing, rhonchi or rales. Abdominal: Palpations: Abdomen is soft. Tenderness: There is no abdominal tenderness. Musculoskeletal: Right lower leg: No edema. Left lower leg: No edema. Neurological: Mental Status: He is alert. Assessment/Plan Diagnoses and all orders for this visit: Physical exam Comments: Patient is encouraged to continue diet and exercise regimen Check fasting blood work listed below Referral for ultrasound of the liver Referral to GI for screening colonoscopy COVID and PCV 20 vaccines today Tubular adenoma - Referral to Gastroenterology; Future Fatty liver - Comprehensive Metabolic Panel; Future - US Abdomen Complete; Future Screening for prostate cancer - PSA,Total; Future Screening for cholesterol level - Comprehensive Metabolic Panel; Future - Lipid Panel, Standard; Future Encounter for immunization - COVID-19 VACCINE [id number] (Comirnaty) 19 yrs + - PCV-20 VACCINE 6 wks + documented in this encounter Miscellaneous Notes * Addendum Note - Sharif Nelson MD - 08/01/2025 2:45 PM ESTAddended by: SHARIF NELSON on: 08/01/2025 03:39 PM Modules accepted: Level of Service documented in this encounter Plan of Treatment Scheduled Orders Name Type Priority Associated Diagnoses Orde r Schedule Comprehensive Metabolic Panel Lab Routine Fatty liver Screening for cholesterol level Expected: 08/01/2025 (Approximate), Expires: 08/01/2026 Lipid Panel, Standard Lab Routine Screening for cholesterol level Expected: 08/01/2025 (Approximate), Expires: 08/01/2026 PSA,Total Lab Routine Screening for prostate cancer Expected: 08/01/2025, Expires: 08/01/2026 US Abdomen Complete Imaging Routine Fatty liver Expected: 08/01/2025, Expires: 08/01/2026 Scheduled Referrals Name Type Priority Associated Diagnoses Order Schedule Referral to Gastroenterology Outpatient Referral Routine Tubular adenoma Expected: 08/01/2025 (Approximate), Expires: 08/01/2026 documented as of this encounter Visit Diagnoses Diagnosis Physical exam- Primary Unspecified general medical examination Tubular adenoma Benign neoplasm of unspecified site Fatty liver Other chronic nonalcoholic liver disease Screening for prostate cancer Special screening for malignant neoplasm of prostate Screening for cholesterol level Encounter for immunization documented in this encounter Additional Health Concerns Assessment Noted Time PHQ-9 Depression Total Score: 0 05/19/20 25 3:41 PM EDT documented as of this encounter Care Teams Lunchroom Aide Relationship Specialty Start Date End Date Name, MD Sharif [address] [place] [address] PCP - General Family Medicine 09/01/18 documented as of this encounter
--- OUTSIDE RECORDS SUMMARY | 2025-08-04 08:33 | XMS_ITS | Encounter Summary ---
Author Organization [employer] Address [address] [place] [address] 7[address] [place] [address] Care Team Providers Care Clinical Rn Liaison Name Role Phone Name, Sharif BOLAND Primary Care Provider [phone] Reason for Visit * Reason Onset Date Comments Appointment Request 11/11/2023 Encounter Details Date Type Department Care Team ([facility] st Contact Info) Description 11/11/2023 Telephone [facility] MEDICINE [address] [place] [phone] Name, MD Sharif [address] [place] [phone] Appointment Request Social History Tobacco Use Types [...] received a call regarding tomorrows f/u ext copy writer saw nothing tasked. Pt is requesting to reschedule f/u ext for a later date. documented in this encounter Plan of Treatment Not on file documented as of this encounter Visit Diagnoses Not on filedocumented in this encounter Additional Health Concerns Assessment Noted Time PHQ-9 Depression Total Score: 0 07/14/20 23 2:08 PM EST documented as of this encounter Care Teams Clinical Rn Liaison Relationship Specialty Start Date End Date Name, MD Sharif [address] [place] [address] PCP - General Family Medicine 09/01/18 documented as of this encounter
--- OUTSIDE RECORDS SUMMARY | 2025-08-04 08:33 | XMS_ITS | Clinical Summary ---
Author Organization [employer] Address [address] [place] [address] [address] [place] [address] Care Team Providers Care Manager Shell Name Role Phone NameSharif MD Primary Care Provider [phone] Allergies No known active allergies Medications No known medications Active Problems Problem Noted Date Diagnosed Date Fatty liver 08/01/2025 Effusion of right knee 05/20/2025 Gallstone 07/14/2023 07/14/2023 Liver cyst 07/14/2023 07/14/2023 Tubular adenoma 07/14/2023 07/14/2023 Encounters Date Type Department Care Team Description 08/01/2025 2:45 PM EST Office Visit [address] [address] Sharif Lara MD Physical exam (Primary Dx); Tubular adenoma; Fatty liver; Screening for prostate cancer; Screening for cholesterol level; Encounter for immunization 08/01/2025 Travel 07/31/2025 Travel 07/21/2025 Patient Outreach [facility] [address] [place] [address] Sharif Lara MD Pre-visit Planning ([facility] unable to reach [facility] ./) 05/30/2025 1:30 PM EDT Clinical Support [address] [address] Khadra Davis RN Elevated blood pressure reading [R03.0] 05/30/2025 Travel 05/24/[address] [address] Sharif Lara MD Referral 05/23/2025 Travel 05/19/2025 3:30 PM EDT Office Visit [address] [address] Dariela Ramirez, [employer]PRETER Acute pain of right knee (Primary Dx); Elevated blood pressure reading in office without diagnosis of hypertension 05/19/2025 Travel 05/12/2025 Travel 05/12/2025 Patient Outreach [facility] [address] [place] [address] Name, MD Sharif Pre-visit Planning ([facility] unable to reach [facility]) from Last 3 Months Immunizations Immunization Administration Dates Next Due Influenza Injectable Quadriv alant Preservative Free IIV4 MDCK 05/23/2023,05/24/2022,05/13/2020,2016 Influenza injectable quadriv alent preservative free 06/03/2021,07/05/2019,07/10/2018,2013 Influenza, IIV3, injectable 07/09/2013 Influenza, Injectable, MDCK, preservative free 05/14/2024 Influenza, Recombinant, inje ctable, preservative free 05/20/2025 Pfizer Covid-19 Vaccine 12+ 08/01/2025 Pneumococcal Conjugate PCV 20 08/01/2025 Tdap 07/14/2023,07/08/2011 Family History Medical History Relation [...] Mass Index 23.69 08/01/2025 2:43 PM EST Plan of Treatment Health Maintenance Due Date Last Done Comments CT Colonography 1969 FIT DNA/Cologuard 1969 FIT 1969 FOBT 1969 HIV Screening 1969 Sigmoidoscopy 1969 Hepatitis A Vaccines (1 of 2 - Risk 2-dose series) 1988 Hepatitis B Vaccines (1 of 3 - 19+ 3-dose series) 1988 RSV Patients and Patients Aged 60 years or older (1 - Risk 50-74 years 1-dose series) 2019 Zoster Vaccines (1 of 2) 2019 Colonoscopy 04/27/2024 04/27/2019 Colorectal Cancer Screening 04/27/2024 Disability Screening 05/12/2026 05/12/2025 Alcohol/Substance Use Screening 05/19/2026 05/19/2025 Depression Screening 05/19/2026 05/19/2025, 05/19/20 25 SDOH Screening 05/19/2026 05/19/2025 Tobacco Screening 05/19/2026 05/19/2025 Lipid Panel 01/29/2029 01/30/2024, 07/02, 06/08/2021 DTaP/Tdap/Td Vaccines (3 - Td or Tdap) 07/14/2033 07/14/2023, 07/08/2011 Hepatitis C Screening Completed 07/16/2023 Influenza Vaccine Completed 05/20/2025, , 05/23/2023, Additional history exists COVID-19 Vaccine Completed 08/01/2025, , 05/23/2023, Additional history exists Pneumococcal Vaccine: 50+ Years Completed 08/01/2025 HIB Vaccines Aged Out No longer eligi [...] Procedure Name Priority Date/Time Associated Diagnosis Comments LIPID PANEL, STANDARD Routine 01/30/2024 8:13 AM [...] Relevant to Health Maintenance Results * (ABNORMAL) Lipid Panel, Standard (01/30/2024 8:13 AM EDT) Triglycerides 89 <150 mg/dL [facility] Comment:Desirable Triglyceri de: less than [...] 190 mg/dL HDL Cholesterol 57 >40 mg/dL [facility] Comment:Desirable HDL: great er than 40 mg/dL Note: This HDL assay may give artificially low results in patients with liver disease. Blood Venous blood specimen / Unknown 01/30/2024 8:13 AM EDT 01/30/2024 11:12 AM EDT us Sharif Lara MD LAB BLOOD ORDERABLES Final Resul t [facility] [address] [place] [address] [phone] * Hepatitis C Ab (07/16/2023 8:13 AM EST) Hepatitis C Antibody Nonreactive Nonreactive [facility] Comment:Antibodies to HCV no t detected; does not exclude early acuteHCV infection. Blood Venous blood specimen / Unknown 07/16/2023 8:13 AM EST 07/16/2023 11:04 AM EST Sharif Name LAB BLOOD ORDERABLES Final Resul t [facility] [address] [place] [address] [phone] * (ABNORMAL) Colonoscopy (04/27/2019) Colonoscopy Abnormal( A) Normal Comment:polyp removed Sharif Name HEALTH MAINTENANCE Final Result from Last 3 Months or Most Recently Relevant to Health Maintenance Insurance HMO Care Teams Manager Shell Relationship Specialty Start Date End Date Name, MD Sharif [address] [place] [id number] PCP - General Family Medicine 09/01/18
--- OUTSIDE RECORDS SUMMARY | 2025-08-04 08:33 | XMS_ITS | Encounter Summary ---
Author Organization [employer] Address [address] [facility] [address] [place] [address] Care Team Providers Care Pugger Helper Name Role Phone Name, Sharif BOLAND Primary Care Provider [phone] Encounter Details Date Type Department Care Team (Latest Contact Info) Description 07/31/2025 Travel Social History Tobacco Use Types Packs/Day Years [...] documented as of this encounter Care Teams Pugger Helper Relationship Specialty Start Date End Date Name, MD Sharif [address] [place] [address] PCP - General Family Medicine 09/01/18 documented as of this encounter
--- OUTSIDE RECORDS SUMMARY | 2025-08-04 08:33 | XMS_ITS | Encounter Summary ---
Author Organization [employer] Address [address] [facility] [address] [place] [address] Care Team Providers Care Sales Promotion Director Name Role Phone Name, Sharif BOLAND Primary Care Provider [phone] Encounter Details Date Type Department Care Team (Latest Contact Info) Description 08/01/2025 Travel Social History Tobacco Use Types Packs/Day [...] documented as of this encounter Care Teams Sales Promotion Director Relationship Specialty Start Date End Date Name, MD Sharif [address] [place] [address] PCP - General Family Medicine 09/01/18 documented as of this encounter
[2025-08-04 11:56] LABS: Alanine Aminotransferase 26 U/L (0-40); Albumin Level 4.5 g/dL (3.5-5.0); Alkaline Phosphatase 48 U/L (39-117); Anion Gap 10 (12-20); Aspartate Amino Transferase 26 U/L (5-37); Blood Urea Nitrogen 17 mg/dL (9-16); Calcium 9.2 mg/dL (8.4-10.2); Carbon Dioxide 28 mmol/L (22-29); Chloride 106 mmol/L (96-108); Cholesterol 197 mg/dL (<200); Estimated Glomerular Filt Rate > 60; HDL Cholesterol 60 mg/dL (>40); Potassium 4.1 mmol/L (3.3-5.1); Sodium 140 mmol/L (135-145); Total Protein 6.9 g/dL (6.5-8.0); Triglycerides 96 mg/dL (<150)
[2025-08-04 12:29] LABS: Prostate Specific Antigen 0.40 ng/mL (<0.05-4.0)
== END 2025-08-04 08:19 | disposition home or self-care (01) ==
LOC: HO.HHCL 08:18
PROVIDERS: PCP Internal Medicine Geriatric Medicine; Visit Provider Internal Medicine Geriatric Medicine
DX: Z12.5 Encounter for screening for malignant neoplasm of prostate (principal); Z13.220 Encounter for screening for lipoid disorders; K76.0 Fatty (change of) liver, not elsewhere classified
CPT/HCPCS: 36415; 80053; 80061; 84153